=== PATIENT | female | born 1975 | race Caucasian/White ===

== ENCOUNTER 2018-05-29 11:30 | Emergency (ER) | payer OTHER ==
[2018-05-29 11:36] VITALS: BP 134/65
--- NOTE | 2018-05-29 11:45 | ER Document Report ---
HPI - HPI Patient complains to provider of: Dorsal left foot pain Onset: Yesterday - Evening Onset/Duration: Sudden Pain Level: 2 Context: 42-year-old female accidentally kicked a brick last evening and is having pain in the dorsal mid to distal foot into the second and third toes. She had some swelling this morning. Associated Symptoms: None Exacerbated by: Movement Relieved by: Denies - ROS ROS below otherwise negative: Yes Systems Reviewed and Negative: Yes All other systems reviewed and negative Past Medical History - General Information source: Patient - Social History Smoking Status: Unknown if Ever Smoked Frequency of alcohol use: None Drug Abuse: None Lives with: Spouse/Significant other Family History: Reviewed & Not Pertinent - Medical History Medical History: Negative Surgical Hx: Negative Vertical Provider Document - CONSTITUTIONAL Agree With Documented VS: Yes Exam Limitations: No Limitations General Appearance: No Apparent Distress - MUSCULOSKELETAL/EXTREMETIES Musculoskeletal/Extremeties: MAEW, FROM, Tender, Edema - Dorsal left mid to distal foot, neurovascular intact. 2+ DP. negative: Eccymosis - NEURO Level of Consciousness: Awake Motor/Sensory: No Motor Deficit, No Sensory Deficit - DERM Integumentary: No Rash Course - Re-evaluation Re-evalutation: 05/29/18 12:27 X-ray negative per radiologist - Vital Signs Vital signs: Temp Pulse Resp BP Pulse Ox 98.8 F 80 16 134/65 H 98 05/29/18 11:34 05/29/18 11:34 05/29/18 11:34 05/29/18 11:34 05/29/18 11:34 Procedures - Immobilization Left Foot Time completed: 12:35 Pre-Proc Neuro Vasc Exam: Normal Immobilizer type: Javy wrap Performed by: PCT Post-Proc Neuro Vasc Exam: Normal Alignment checked and good: Yes Discharge - Discharge Clinical Impression: Left foot contusion Condition: Good Disposition: HOME, SELF-CARE Instructions: Contusion ([facility]), Javy Wrap ([facility]), Ibuprofen (General) ([facility]) Additional Instructions: Javy bandage Elevate Motrin Follow-up with orthopedist if you continue to have problems with her left foot Prescriptions: Ibuprofen [Motrin 800 mg Tablet] 800 mg PO Q8HP PRN #30 tablet PRN Reason:
--- NOTE | 2018-05-29 12:10 | RADIOLOGY REPORT (SQ) ---
EXAM DESCRIPTION: FOOT LEFT COMPLETE COMPLETED DATE/TIME: 05/29/2018 11:58 am REASON FOR STUDY: Pain and swelling kicked COMPARISON: None. NUMBER OF VIEWS: Three views. TECHNIQUE: AP, lateral and oblique radiographic images acquired of the left foot. LIMITATIONS: None. FINDINGS: MINERALIZATION: Normal. BONES: No acute fracture or dislocation. No worrisome bone lesions. JOINTS: No effusions. SOFT TISSUES: No soft tissue swelling. No foreign body. OTHER: No other significant finding. IMPRESSION: NEGATIVE STUDY OF THE LEFT FOOT. NO RADIOGRAPHIC EVIDENCE OF ACUTE INJURY. TECHNICAL DOCUMENTATION: JOB ID: [id number] [employer]- All Rights Reserved Reading location - IP/workstation name: [email or web address]
== END 2018-05-29 12:34 | disposition home or self-care (01) ==
LOC: ER 11:30
DX: S90.32XA Contusion of left foot, initial encounter (principal); M79.672 Pain in left foot; M79.675 Pain in left toe(s); W22.8XXA Striking against or struck by other objects, initial encounter
CPT/HCPCS: 99283

== ENCOUNTER 2018-09-14 20:53 | Emergency (ER) | payer OTHER, MEDICAID ==
[2018-09-14 21:03] VITALS: BP 125/63
--- NOTE | 2018-09-14 21:39 | RADIOLOGY REPORT (SQ) ---
EXAM DESCRIPTION: XR FOOT 3 OR MORE VIEWS COMPLETED DATE/TME: 09/14/2018 00:00 CLINICAL HISTORY: 43 years ,Female pain in toe and foot unknown injury COMPARISON: None. TECHNIQUE: LEFT foot, Three view FINDINGS: No acute fractures or dislocations are identified. No osseous destructive lesions. No radiopaque foreign object noted. No significant ankle effusion noted. IMPRESSION: No acute fracture or dislocation is identified.
--- NOTE | 2018-09-14 22:19 | ER Document Report ---
ED Extremity Problem, Lower - General Chief Complaint: Foot Pain Stated Complaint: LEFT FOOT/TOE PAIN WHEN WIEGHT PUT ON IT Time Seen by Provider: 09/14/18 21:40 Mode of Arrival: Ambulatory Information source: Patient Notes: 43-year-old female presents to ED for complaint of pain to the bottom of her left foot including her toes. She states she does not know of any injuries to this foot. She states it is painful to walk on. Patient is alert and oriented respirations regular and unlabored speaking in full sentences she does walk with a limp. TRAVEL OUTSIDE OF THE [place] IN LAST 30 DAYS: No - HPI Patient complains to provider of: Pain. No: Injury Location: Foot Occurred: Other - Couple days Onset/Duration: Gradual Quality of pain: Burning, Sharp Severity: Mild Pain Level: 2 Recent injury: No Associated symptoms: Painful ambulation Exacerbated by: Movement, Walking Relieved by: Nothing - Related Data Allergies/Adverse Reactions: acetaminophen [From Percocet] Allergy (Verified 05/29/18 11:32) ciprofloxacin [From Cipro] Allergy (Verified 05/29/18 11:32) lorazepam Allergy (Verified 05/29/18 11:32) oxycodone [From Percocet] Allergy (Verified 05/29/18 11:32) Past Medical History - General Information source: Patient - Social History Smoking Status: Current Every Day Smoker Cigarette use (# per day): Yes - Half pack per day Chew tobacco use (# tins/day): No Smoking Education Provided: Yes - 4 minutes Frequency of alcohol use: None Drug Abuse: None Occupation: Housewife Lives with: Family Family History: Reviewed & Not Pertinent Patient has suicidal ideation: No Patient has homicidal ideation: No Pulmonary Medical History: Reports: Hx Asthma EENT Medical History: Reports: None Neurological Medical History: Reports: None Endocrine Medical History: Reports: Hx Hypothyroidism Renal/ Medical History: Reports: None Malignancy Medical History: Reports: Other - Thyroid cancer GI Medical History: Reports: None Musculoskeletal Medical History: Reports Hx Arthritis, Reports Hx Musculoskeletal Deformity, Reports Hx Musculoskeletal Trauma Skin Medical History: Reports Hx MRSA Psychiatric Medical History: Reports: None Traumatic Medical History: Reports: Hx Fractures - Hand wrist leg to her left scapula and fingers Infectious Medical History: Reports: Hx MRSA - Face Past Surgical History: Reports: Hx Cardiac Catheterization, Hx Thyroid Surgery - Thyroidectomy with injury to parathyroid, Hx Tubal Ligation, Other - Lymph nodes from left axilla, breast ducts removed, neck cyst. Denies: Hx Coronary Stent - Immunizations Immunizations up to date: Yes Review of Systems - Review of Systems Constitutional: No symptoms reported EENT: No symptoms reported Cardiovascular: No symptoms reported Respiratory: No symptoms reported Gastrointestinal: No symptoms reported Genitourinary: No symptoms reported Female Genitourinary: No symptoms reported Musculoskeletal: Other - Entire surface left foot and toes pain Skin: No symptoms reported Hematologic/Lymphatic: No symptoms reported Neurological/Psychological: No symptoms reported Physical Exam - Vital signs Vitals: Temp Pulse Resp BP Pulse Ox 98.9 F 89 16 125/63 97 09/14/18 21:02 09/14/18 21:02 09/14/18 21:02 09/14/18 21:02 09/14/18 21:02 Interpretation: Normal - General General appearance: Appears well, Alert - HEENT Head: Normocephalic, Atraumatic Eyes: Normal Pupils: PERRL - Respiratory Respiratory status: No respiratory distress Chest status: Nontender Breath sounds: Normal Chest palpation: Normal - Cardiovascular Rhythm: Regular Heart sounds: Normal auscultation Murmur: No - Abdominal Inspection: Normal Distension: No distension Bowel sounds: Normal Tenderness: Nontender Organomegaly: No organomegaly - Back Back: Normal, Nontender - Extremities General upper extremity: Normal inspection, Nontender, Normal color, Normal ROM , Normal temperature General lower extremity: Normal inspection, Normal color, Normal ROM, Normal temperature, Normal weight bearing. No: Reena's sign Foot: Tender - Bottom of left foot and toes, Metatarsal compress. pain, No evidence of FB. No: Abrasion, Deformity, Ecchymosis, Edema, Instability, Laceration, Nail injury, Navicular tenderness, Tender 5th metatarsal, Unable to bear weight - Neurological Neuro grossly intact: Yes Cognition: Normal Orientation: AAOx4 [place] Coma Scale Eye Opening: Spontaneous [place] Coma Scale Verbal: Oriented Wendy Coma Scale Motor: Obeys Commands [place] Coma Scale Total: 15 Speech: Normal Motor strength normal: LUE, RUE, LLE, RLE Sensory: Normal - Psychological Associated symptoms: Normal affect, Normal mood - Skin Skin Temperature: Warm Skin Moisture: Dry Skin Color: Normal Course - Vital Signs Vital signs: Temp Pulse Resp BP Pulse Ox 98.9 F 89 16 125/63 97 09/14/18 21:02 09/14/18 21:02 09/14/18 21:02 09/14/18 21:02 09/14/18 21:02 - Diagnostic Test Radiology reviewed: Image reviewed, Reports reviewed Discharge - Discharge Clinical Impression: Plantar fasciitis, left Condition: Stable Disposition: HOME, SELF-CARE Instructions: Plantar Fasciitis or Heel Spur ([facility]) Additional Instructions: Ibuprofen Ibuprofen is an excellent, safe drug for pain control. In addition, it has potent antiinflammatory effects which are beneficial, especially in the treatment of injuries, arthritis, or tendonitis. It's best to take ibuprofen with food. Persons with ulcer disease or allergy to aspirin should notify their physician of this before taking ibuprofen. Take the medication exactly as prescribed. Don't take additional doses unless instructed to do so by your doctor. If you develop wheezing, shortness of breath, hives, faintness, stomach pain, vomiting, or dark black stools, return for re-evaluation at once. Take a water bottle and up about 3 inches of the water out of the bottle. Screw the top back on the bottom. Laser bottle in the freezer until it freezes. Then roll your foot back and forth across the bottle with the RTU foot rolling across the bilateral to reduce the pain. There are arch support orthotic you can buy at the drugstore to put in your tender shoes for plantar fasciitis Exercises for the Foot Muscles Stretching and strengthening of the foot muscles is an important part of recovery from injury, as well as in treatment and prevention of overuse syndromes like plantar fasciitis. TOWEL CURLS: Put your foot on a dry towel. Curl your toes to pick it up, then drop it. As it becomes easier, use a heavier towel. Repeat 20 times, twice daily. KAYE CURLS: Lift and turn your knee, so your foot is against the opposite leg about mid-kaye. Try to "grab" the entire kaye bone with your toes, while moving your foot up and down the leg for one minute. Repeat twice daily. TOE LIFTS: Put your opposite foot over your 2nd to 5th toes. Now lift the toes up, pushing the other foot upward. Repeat 10 times, twice daily. Repeat using the large toe. EVERSIONS: Cross the opposite foot over, placing the heel just behind the 4th and 5th toes. Try to lift up the outside of the bottom foot. Hold 10 seconds. Repeat twice daily. FOLLOW-UP CARE: If you have been referred to a physician for follow-up care, call the physician s office for an appointment as you were instructed or within the next two days. If you experience worsening or a significant change in your symptoms, notify the physician immediately or return to the Emergency Department at any time for re-evaluation. Prescriptions: Ibuprofen 600 mg PO Q6HP PRN #20 tablet PRN Reason: Forms: Smoking Cessation Education Referrals: RG LEIJA DPM [ACTIVE STAFF] - Follow up as needed
== END 2018-09-14 22:35 | disposition home or self-care (01) ==
LOC: ER 20:53
DX: M72.2 Plantar fascial fibromatosis (principal); M79.672 Pain in left foot; M79.675 Pain in left toe(s); J45.909 Unspecified asthma, uncomplicated; F17.210 Nicotine dependence, cigarettes, uncomplicated; Z71.6 Tobacco abuse counseling; Z88.6 Allergy status to analgesic agent; Z88.1 Allergy status to other antibiotic agents; Z88.5 Allergy status to narcotic agent; Z88.8 Allergy status to other drugs, medicaments and biological substances
CPT/HCPCS: 99283; 99406

== ENCOUNTER 2018-10-22 13:01 | Emergency (ER) | payer OTHER, MEDICAID ==
--- NOTE | 2018-10-22 13:28 | ER Document Report ---
ED Medical Screen (RME) - General Chief Complaint: Ear Pain Stated Complaint: EAR PAIN Time Seen by Provider: 10/22/18 13:15 Notes: 43-year-old female patient reports sudden onset this morning of severe pain just behind the right ear. It is a pulsing type pain causing her to feel lightheaded. Palpating the bony area just behind the inferior ear region causes severe pain and she hears a sloshing sound. Pulling on the external ear canal seems to make it feel a little better. When she massages her parotid gland, it also causes that sloshing sound. I have greeted and performed a rapid initial assessment of this patient. A comprehensive ED assessment and evaluation of the patient, analysis of test results and completion of the medical decision making process will be conducted by additional ED providers. TRAVEL OUTSIDE OF THE [place] IN LAST 30 DAYS: No - Related Data Allergies/Adverse Reactions: ciprofloxacin [From Cipro] Allergy (Verified 10/22/18 13:04) lorazepam Allergy (Verified 10/22/18 13:04) oxycodone [From Percocet] Allergy (Verified 10/22/18 13:04) Past Medical History - Social History Chew tobacco use (# tins/day): No Frequency of alcohol use: Occasional Drug Abuse: None Pulmonary Medical History: Reports: Hx Asthma Endocrine Medical History: Reports: Hx Hypothyroidism Renal/ Medical History: Denies: Hx Peritoneal Dialysis Musculoskeltal Medical History: Reports Hx Arthritis, Reports Hx Musculoskeletal Deformity, Reports Hx Musculoskeletal Trauma Skin Medical History: Reports Hx MRSA Traumatic Medical History: Reports: Hx Fractures - Hand wrist leg to her left scapula and fingers Infectious Medical History: Reports: Hx MRSA - Face Past Surgical History: Reports: Hx Cardiac Catheterization, Hx Thyroid Surgery - Thyroidectomy with injury to parathyroid, Hx Tubal Ligation, Other - Lymph nodes from left axilla, breast ducts removed, neck cyst. Denies: Hx Coronary Stent - Immunizations Immunizations up to date: Yes Physical Exam - Vital signs Vitals: Temp Pulse Resp BP Pulse Ox 98.1 F 81 16 146/84 H 96 10/22/18 13:04 10/22/18 13:04 10/22/18 13:04 10/22/18 13:04 10/22/18 13:04 Course - Vital Signs Vital signs: Temp Pulse Resp BP Pulse Ox 98.1 F 81 16 146/84 H 96 10/22/18 13:04 10/22/18 13:04 10/22/18 13:04 10/22/18 13:04 10/22/18 13:04
[2018-10-22 14:16] LABS: ABSOLUTE EOSINOPHILS # (AUTO) 0.1 10^3/uL (0.0-0.6); ABSOLUTE MONOCYTES (AUTO) 0.4 10^3/uL (0.1-1.4); ABSOLUTE NEUT (AUTO) 3.5 10^3/uL (1.7-8.2); BASOPHILS % (AUTO) 0.3 % (0-2); EOSINOPHILS % (AUTO) 1.1 % (0-6); HEMATOCRIT 42.1 % (36.0-47.0); HEMOGLOBIN 14.6 g/dL (12.0-15.5); LYMPHOCYTES % (AUTO) 43.2 % (13-45); MEAN CORPUSCULAR HEMOGLOBIN 31.3 pg (27.0-33.4); MEAN CORPUSCULAR HGB CONC 34.7 g/dL (32.0-36.0); MEAN CORPUSCULAR VOLUME 90 fl (80-97); MONOCYTES % (AUTO) 5.2 % (3-13); PLATELET COUNT 237 10^3/uL (150-450); RED BLOOD COUNT 4.66 10^6/uL (3.72-5.28); SEGMENTED NEUTROPHILS % (AUTO) 50.2 % (42-78); TOTAL CELLS COUNTED % (AUTO) 100 %
[2018-10-22 14:32] LABS: ALANINE AMINOTRANSFERASE 23 U/L (9-52); ALBUMIN 4.3 g/dL (3.5-5.0); ALKALINE PHOSPHATASE 44 U/L (38-126); ANION GAP 10 (5-19); ASPARTATE AMINO TRANSFERASE 19 U/L (14-36); BILIRUBIN,DIRECT 0.2 mg/dL (0.0-0.4); BILIRUBIN,TOTAL 0.4 mg/dL (0.2-1.3); BLOOD UREA NITROGEN 7 mg/dL (7-20); CALCIUM 9.4 mg/dL (8.4-10.2); CARBON DIOXIDE 25 mmol/L (22-30); CHLORIDE 106 mmol/L (98-107); GLUCOSE 90 mg/dL (75-110); POTASSIUM 4.4 mmol/L (3.6-5.0); SODIUM 141.1 mmol/L (137-145); TOTAL PROTEIN 7.5 g/dL (6.3-8.2)
[2018-10-22 14:34] LABS: C-REACTIVE PROTEIN < 5.0 mg/L (<10.0)
[2018-10-22] MEDS ORDERED: PSEUDOEPHEDRINE HCL 30 MG TABLET PO ONE (14:57)
[2018-10-22] MEDS ORDERED: OXYMETAZOLINE HCL 0.05% NASAL SPRAY 15 ML BOTTLE NASL ONE (14:57)
[2018-10-22] MEDS ORDERED: MECLIZINE HCL 25 MG TABLET PO ONE (14:57)
--- NOTE | 2018-10-22 15:50 | ER Document Report ---
ED ENT - General Chief Complaint: Ear Pain Stated Complaint: EAR PAIN Time Seen by Provider: 10/22/18 13:15 Notes: This is a 43-year-old pleasant female to the emergency department complaining of right ear pain. Patient went to her primary care provider's office. Was seen and sent here to the ER for a CT scan of the head because she was having right ear pain. They were concerned she might have mastoiditis. Patient states that the pain came on suddenly and felt like her hearing was diminished. She can hear the heartbeat. It is throbbing. Denies any pain behind the ear. No fever, chills, sweats, chest pain or other issues at this time. No trauma to the ear. Patient states that she was recently treated with doxycycline for sinus infection. Last dose was yesterday. TRAVEL OUTSIDE OF THE [place] IN LAST 30 DAYS: No - HPI Patient complains to provider of: Ear problem Onset: Just prior to arrival Quality of pain: Achy Severity: Moderate Pain Level: 3 Location of pain: Ears - Related Data Allergies/Adverse Reactions: ciprofloxacin [From Cipro] Allergy (Verified 10/22/18 13:04) lorazepam Allergy (Verified 10/22/18 13:04) oxycodone [From Percocet] Allergy (Verified 10/22/18 13:04) Past Medical History - General Information source: Patient - Social History Smoking Status: Current Every Day Smoker Chew tobacco use (# tins/day): No Frequency of alcohol use: Occasional Drug Abuse: None Lives with: Spouse/Significant other Family History: Reviewed & Not Pertinent Patient has suicidal ideation: No Patient has homicidal ideation: No Pulmonary Medical History: Reports: Hx Asthma Endocrine Medical History: Reports: Hx Hypothyroidism Renal/ Medical History: Denies: Hx Peritoneal Dialysis Musculoskeletal Medical History: Reports Hx Arthritis, Reports Hx Musculoskeletal Deformity, Reports Hx Musculoskeletal Trauma Skin Medical History: Reports Hx MRSA Traumatic Medical History: Reports: Hx Fractures - Hand wrist leg to her left scapula and fingers Infectious Medical History: Reports: Hx MRSA - Face Past Surgical History: Reports: Hx Cardiac Catheterization, Hx Thyroid Surgery - Thyroidectomy with injury to parathyroid, Hx Tubal Ligation, Other - Lymph nodes from left axilla, breast ducts removed, neck cyst. Denies: Hx Coronary Stent - Immunizations Immunizations up to date: Yes Review of Systems - Review of Systems Notes: Constitutional: denies: Chills, Diaphoresis, Fever, Malaise, Weakness EENT: denies: Eye discharge, Blurred vision, Tearing, Double vision, Nose congestion, Nose discharge, Throat swelling, Mouth pain. Patient does state that she has right ear pain and fullness in the right ear with a recent sinus infection Cardiovascular: denies: Palpitations, Heart racing, Orthopnea, Dyspnea, Chest pain Respiratory: denies: Cough, Hurts to breathe, Wheezing, Shortness of breath Gastrointestinal: denies: Abdominal pain, Diarrhea, Nausea, Vomiting, Black stools, bright red blood in stool Genitourinary: denies: Burning, Dysuria, Discharge, Frequency, Flank pain, Hematuria Musculoskeletal: denies: Joint pain, Joint swelling, Muscle pain, Muscle stiffness, back pain Hematologic/Lymphatic: denies: Anemia, Easy bleeding, Easy bruising, Blood clots Neurological/Psychological: denies: Confusion, Dementia, Depression, Loss of consciousness Skin: No lesions, no masses, no skin breakdown, no abscesses Physical Exam - Vital signs Vitals: Temp Pulse Resp BP Pulse Ox 98.1 F 81 16 146/84 H 96 10/22/18 13:04 10/22/18 13:04 10/22/18 13:04 10/22/18 13:04 10/22/18 13:04 Interpretation: Normal - General General appearance: Appears well, Alert - HEENT Head: Normocephalic, Atraumatic Eyes: Normal Pupils: PERRL - Respiratory Respiratory status: No respiratory distress Chest status: Nontender Breath sounds: Normal Chest palpation: Normal - Cardiovascular Rhythm: Regular Heart sounds: Normal auscultation Murmur: No - Abdominal Inspection: Normal Distension: No distension Bowel sounds: Normal Tenderness: Nontender Organomegaly: No organomegaly - Back Back: Normal, Nontender - Extremities General upper extremity: Normal inspection, Nontender, Normal color, Normal ROM , Normal temperature General lower extremity: Normal inspection, Nontender, Normal color, Normal ROM , Normal temperature, Normal weight bearing. No: Reena's sign - Neurological Neuro grossly intact: Yes Cognition: Normal Orientation: AAOx4 [place] Coma Scale Eye Opening: Spontaneous Wendy Coma Scale Verbal: Oriented [place] Coma Scale Motor: Obeys Commands [place] Coma Scale Total: 15 Speech: Normal Motor strength normal: LUE, RUE, LLE, RLE Sensory: Normal - Psychological Associated symptoms: Normal affect, Normal mood - Skin Skin Temperature: Warm Skin Moisture: Dry Skin Color: Normal Course - Re-evaluation Re-evalutation: 10/22/18 15:59 Laboratory 10/22/18 10/22/18 13:59 13:59 WBC 7.0 RBC 4.66 Hgb 14.6 Hct 42.1 MCV 90 MCH 31.3 MCHC 34.7 RDW 13.0 Plt Count 237 Seg Neutrophils % 50.2 Lymphocytes % 43.2 Monocytes % 5.2 Eosinophils % 1.1 Basophils % 0.3 Absolute Neutrophils 3.5 Absolute Lymphocytes 3.0 Absolute Monocytes 0.4 Absolute Eosinophils 0.1 Absolute Basophils 0.0 Sodium 141.1 Potassium 4.4 Chloride 106 Carbon Dioxide 25 Anion Gap 10 BUN 7 Creatinine 0.61 Est GFR ( Amer) > 60 Est GFR (Non-Af Amer) > 60 Glucose 90 Calcium 9.4 Total Bilirubin 0.4 Direct Bilirubin 0.2 Neonat Total Bilirubin Not Reportable Neonat Direct Bilirubin Not Reportable Neonat Indirect Bili Not Reportable AST 19 ALT 23 Alkaline Phosphatase 44 C-Reactive Protein < 5.0 Total Protein 7.5 Albumin 4.3 At this time patient's labs are normal, her vital signs are normal. She does not have any redness or abnormality noted to the tympanic membrane. Seems to be getting better after treatment with Sudafed and Afrin as well as some manipulation to the eustachian tube through a downward pressure on the tragus and massaging of the mandible from the TMJ towards the chin. This seems to help her symptoms. At this time I think a CAT scan would be a little overkill. I am not saying that she could not potentially be developing mastoiditis however based on my exam and the fact that patient does not really want a CAT scan and the radiation exposure I think doing symptomatic management at this time would be more appropriate. Patient was advised to return for any worsening symptoms. No suitable discharge instructions were found so I did put a discharge instruction in for barotrauma however she has no significant trauma to the ear but these were the closest discharge instructions that I could find. - Vital Signs Vital signs: Temp Pulse Resp BP Pulse Ox 98.1 F 81 16 146/84 H 96 10/22/18 13:04 10/22/18 13:04 10/22/18 13:04 10/22/18 13:04 10/22/18 13:04 - Laboratory Result Diagrams: 10/22/18 13:59 10/22/18 13:59 Discharge - Discharge Clinical Impression: Otalgia of right ear Eustachian tube disorder Qualifiers: Laterality: right Qualified Code(s): H69.91 - Unspecified Eustachian tube disorder, right ear Condition: Good Disposition: HOME, SELF-CARE Instructions: Ear Barotrauma ([facility]) Additional Instructions: You have right ear pain. Unknown cause at this time. It does not appear to be an infection. You do not have significant symptoms consistent with mastoiditis which would be an infection in the bone. We have decided against doing a CAT scan today. We will try conservative measures at this time. In the event that symptoms are getting worse it will be important that you return for repeat evaluation and further advanced imaging may be required. I am recommending that you take Sudafed every 12 hours, Afrin nasal spray every 12 hours and ibuprofen 600 or 800 mg every 8 hours. Continue to do the exercises which I described. In the event of any worsening symptoms please return immediately for repeat evaluation and treatment. Prescriptions: Meclizine HCl [Antivert 25 mg Tablet] 25 mg PO BID 10 Days #20 tablet Pseudoephedrine HCl [Sudafed] 30 mg PO Q12 10 Days #20 tablet Forms: Return to Work Referrals: BLANCHE RUTH DO [ASSOCIATE] - Follow up in 3-5 days
[2018-10-22 16:09] VITALS: BP 141/74
== END 2018-10-22 16:09 | disposition home or self-care (01) ==
LOC: ER 13:01
DX: H69.91 Unspecified Eustachian tube disorder, right ear (principal); H92.01 Otalgia, right ear; F17.200 Nicotine dependence, unspecified, uncomplicated; J45.909 Unspecified asthma, uncomplicated
CPT/HCPCS: 99283; 36415; 85025; 86140; 80053; J3490

== ENCOUNTER → 2018-11-02 | Outpatient (CLI) | payer OTHER, MEDICAID ==
--- NOTE | 2018-11-02 14:13 | RADIOLOGY REPORT (SQ) ---
EXAM DESCRIPTION: FOOT LEFT COMPLETE COMPLETED DATE/TIME: 11/02/2018 1:10 pm REASON FOR STUDY: POSSIBLE FX OF LEFT FOOT COMPARISON: None. NUMBER OF VIEWS: Three views left foot. LIMITATIONS: None. FINDINGS: Abnormal bone density. On oblique view only, a 3rd mid metatarsal transverse lucency. Garrett spected to be artifact, no evidence of this finding on the other images and no periosteal new bone fo rmation. Other bones are intact. OTHER: No other significant finding. IMPRESSION: 1. Mild 3rd metatarsal shaft lucency is potentially simply artifact. Does the patient have specific tenderness here? If so, nondisplaced fracture is in the differential. TECHNICAL DOCUMENTATION: JOB ID: [id number] Reading location - IP/workstation name: [email or web address]
== END ==
LOC: OD 12:56
PROVIDERS: ATTEND Podiatrist Foot & Ankle Surgery
DX: M84.375D Stress fracture, left foot, subsequent encounter for fracture with routine healing (principal); X58.XXXD Exposure to other specified factors, subsequent encounter

== ENCOUNTER 2019-01-13 17:20 | Emergency (ER) | payer OTHER, MEDICAID ==
[2019-01-13 17:31] VITALS: BP 137/81
[2019-01-13] MEDS ORDERED: IBUPROFEN 800 MG TABLET PO ONE (17:47)
--- NOTE | 2019-01-13 18:23 | RADIOLOGY REPORT (SQ) ---
EXAM DESCRIPTION: HAND LEFT 3 VIEWS COMPLETED DATE/TIME: 01/13/2019 6:15 pm REASON FOR STUDY: smashed hand in door COMPARISON: None. EXAM PARAMETERS: NUMBER OF VIEWS: Three views. TECHNIQUE: AP, lateral and oblique radiographic images acquired of the left hand. LIMITATIONS: None. FINDINGS: MINERALIZATION: Normal. BONES: No acute fracture or dislocation. No worrisome bone lesions. JOINTS: No effusions. SOFT TISSUES: No soft tissue swelling. No foreign body. OTHER: No other significant finding. IMPRESSION: NEGATIVE STUDY OF THE LEFT HAND. NO RADIOGRAPHIC EVIDENCE OF ACUTE INJURY. TECHNICAL DOCUMENTATION: JOB ID: [id number] [employer]- All Rights Reserved Reading location - IP/workstation name: [email or web address]
--- NOTE | 2019-01-13 18:33 | ER Document Report ---
HPI - HPI Patient complains to provider of: right hand pain Time Seen by Provider: 01/13/19 17:44 Onset: Just prior to arrival Onset/Duration: Sudden Quality of pain: Achy Severity: Severe Pain Level: 4 Context: Patient presents emergency department with complaints of right hand pain. Patient reports she was carrying a tote of groceries in and slammed her hand in the door. She reports dorsal hand pain. No obvious deformity. No other com plaints. Patient is right-hand dominant. Associated Symptoms: None Exacerbated by: Movement Relieved by: Denies Similar symptoms previously: No Recently seen / treated by doctor: No - REPRODUCTIVE Reproductive: DENIES: : Past Medical History - General Information source: Patient - Social History Smoking Status: Current Every Day Smoker Chew tobacco use (# tins/day): No Frequency of alcohol use: None Drug Abuse: None Lives with: Family Family History: Reviewed & Not Pertinent Patient has suicidal ideation: No Patient has homicidal ideation: No Pulmonary Medical History: Reports: Hx Asthma Endocrine Medical History: Reports: Hx Hypothyroidism Renal/ Medical History: Denies: Hx Peritoneal Dialysis Malignancy Medical History: Reports: Other - Thyroid cancer Musculoskeletal Medical History: Reports Hx Arthritis, Reports Hx Musculoskeletal Deformity, Reports Hx Musculoskeletal Trauma Skin Medical History: Reports Hx MRSA Traumatic Medical History: Reports: Hx Fractures - Hand wrist leg to her left scapula and fingers Infectious Medical History: Reports: Hx MRSA - Face Past Surgical History: Reports: Hx Cardiac Catheterization, Hx Thyroid Surgery - Thyroidectomy with injury to parathyroid, Hx Tubal Ligation, Other - Lymph nodes from left axilla, breast ducts removed, neck cyst. Denies: Hx Coronary Stent - Immunizations Immunizations up to date: Yes Vertical Provider Document - CONSTITUTIONAL Agree With Documented VS: Yes Exam Limitations: No Limitations General Appearance: WD/WN, Mild Distress - wincing with touch to hand - INFECTION CONTROL TRAVEL OUTSIDE OF THE [place] IN LAST 30 DAYS: No - HEENT HEENT: Atraumatic, Normocephalic - NECK Neck: Supple - RESPIRATORY Respiratory: No Respiratory Distress - CARDIOVASCULAR Cardiovascular: Regular Rate - MUSCULOSKELETAL/EXTREMETIES Musculoskeletal/Extremeties: MAEW, FROM, Tender - right dorsal hand ttp, no obvious deformity, no erythema, no warmth, good cap refill, good radial pulse - NEURO Level of Consciousness: Awake, Alert, Appropriate Motor/Sensory: No Motor Deficit - DERM Integumentary: Warm, Dry Adult Front & Back Diagram: 1 - ttp Course - Re-evaluation Re-evalutation: 01/13/19 18:40 negative hand x-ray no fracture noted. Patient instructed on xray, ice packs Motrin for pain Javy wrap for comfort. She verbalized understanding all instruction. She was also instructed to follow-up with orthopedic for recheck within 1 week or for continued pain. Dictation of this chart was performed using voice recognition software; therefore, there may be some unintended grammatical errors. - Vital Signs Vital signs: Temp Pulse Resp BP Pulse Ox 98.6 F 95 17 137/81 H 100 01/13/19 17:30 01/13/19 17:30 01/13/19 17:30 01/13/19 17:30 01/13/19 17:30 - Diagnostic Test Radiology reviewed: Image reviewed, Reports reviewed - EXAM DESCRIPTION: HAND LEFT 3 VIEWS COMPLETED DATE/TIME: 01/13/2019 6:15 pm REASON FOR STUDY: smashed hand in door COMPARISON: None. EXAM PARAMETERS: NUMBER OF VIEWS: Three views. TECHNIQUE: AP, lateral and oblique radiographic images acquired of the left hand. LIMITATIONS: None. FINDINGS: MINERALIZATION: Normal. BONES: No acute fracture or dislocation. No worrisome bone lesions. JOINTS: No effusions. SOFT TISSUES: No soft tissue swelling. No foreign body. OTHER: No other significant finding. IMPRESSION: NEGATIVE STUDY OF THE LEFT HAND. NO RADIOGRAPHIC EVIDENCE OF ACUTE INJURY. Procedures - Immobilization Right Hand Time completed: 18:42 Pre-Proc Neuro Vasc Exam: Normal Immobilizer type: Javy wrap Performed by: LAZARO - jeanie Post-Proc Neuro Vasc Exam: Unchanged from pre-exam Alignment checked and good: Yes Discharge - Discharge Clinical Impression: Injury of left hand Qualifiers: Encounter type: initial encounter Qualified Code(s): S69.92XA - Unspecified injury of left wrist, hand and finger(s), initial encounter Condition: Stable Disposition: HOME, SELF-CARE Instructions: Javy Wrap ([facility]), Use of [id number]-Zuv-[id number] Ibuprofen ([facility]), Ice & Elevation ([facility]) Additional Instructions: *You have been evaluated for left hand injury *Maintain the javy wrap for comfort *Rest/Ice/Elevate *Follow up with orthopedics for continued pain-call for an appointment *Take ibuprofen as indicated for pain *Return to ED for worsening condition, changes, needs Forms: Return to Work Referrals: ALLEN KNOX MD [Primary Care Provider] - Follow up in 1 week
== END 2019-01-13 18:44 | disposition home or self-care (01) ==
LOC: ER 17:20
DX: S69.92XA Unspecified injury of left wrist, hand and finger(s), initial encounter (principal); M79.641 Pain in right hand; W23.0XXA Caught, crushed, jammed, or pinched between moving objects, initial encounter; Y93.89 Activity, other specified; F17.200 Nicotine dependence, unspecified, uncomplicated; J45.909 Unspecified asthma, uncomplicated; Z85.850 Personal history of malignant neoplasm of thyroid; Z87.81 Personal history of (healed) traumatic fracture
CPT/HCPCS: 99283

== ENCOUNTER 2019-01-27 13:06 | Emergency (ER) | payer OTHER, MEDICAID ==
[2019-01-27] MEDS ORDERED: ASPIRIN 81 MG TABLET, CHEWABLE PO ONE (13:32)
[2019-01-27] MEDS ORDERED: IPRATROPIUM/ALBUTEROL 0.5-2.5 MG/3 ML AMPUL NEB ONE (13:33)
--- NOTE | 2019-01-27 13:34 | ER Document Report ---
ED Medical Screen (RME) - General Chief Complaint: Chest Pain Stated Complaint: CHEST PAIN, SHORT OF BREATH Time Seen by Provider: 01/27/19 13:32 Primary Care Provider: ALLEN KNOX MD [Primary Care Provider] - Follow up as needed Notes: Chief complaint: Chest pain History of complain:( obtained from----patient) 43 years old female with a history of MT-hyperparathyroidism, presents today with chest pain over the left chest wall coughing and wheezing. She is also smoking. Took her inhaler without improvement came to the ED. Denies any left arm numbness tingling sensation nausea vomiting palpitation or diaphoresis. PHYSICAL EXAMINATION: GENERAL: Well-appearing, well-nourished and in mild to moderate acute distress. HEAD: Atraumatic, normocephalic. EYES: Pupils equal round and reactive to light, extraocular movements intact, conjunctiva are normal. ENT: Nares patent, oropharynx clear without exudates. Moist mucous membranes. NECK: Normal range of motion, supple without lymphadenopathy LUNGS: Breath sounds clear to auscultation bilaterally and equal. No wheezes rales or rhonchi. Chest wall tenderness noted over the left precordium HEART: Regular rate and rhythm without murmurs Dictation was performed using [employer] voice recognition software TRAVEL OUTSIDE OF THE [place] IN LAST 30 DAYS: No - Related Data Allergies/Adverse Reactions: ciprofloxacin [From Cipro] Allergy (Verified 01/27/19 13:09) lorazepam Allergy (Verified 01/27/19 13:09) oxycodone [From Percocet] Allergy (Verified 01/27/19 13:09) Past Medical History Pulmonary Medical History: Reports: Hx Asthma Endocrine Medical History: Reports: Hx Hypothyroidism Renal/ Medical History: Denies: Hx Peritoneal Dialysis Musculoskeltal Medical History: Reports Hx Arthritis, Reports Hx Musculoskeletal Deformity, Reports Hx Musculoskeletal Trauma Skin Medical History: Reports Hx MRSA Traumatic Medical History: Reports: Hx Fractures - Hand wrist leg to her left scapula and fingers Infectious Medical History: Reports: Hx MRSA - Face Past Surgical History: Reports: Hx Cardiac Catheterization, Hx Thyroid Surgery - Thyroidectomy with injury to parathyroid, Hx Tubal Ligation, Other - Lymph nodes from left axilla, breast ducts removed, neck cyst. Denies: Hx Coronary Stent - Immunizations Immunizations up to date: Yes Physical Exam - Vital signs Vitals: Temp Pulse Resp BP Pulse Ox 98.2 F 113 H 18 119/81 100 01/27/19 13:11 01/27/19 13:11 01/27/19 13:11 01/27/19 13:11 01/27/19 13:11 Course - Vital Signs Vital signs: Temp Pulse Resp BP Pulse Ox 98.2 F 113 H 18 119/81 100 01/27/19 13:11 01/27/19 13:11 01/27/19 13:11 01/27/19 13:11 01/27/19 13:11 Doctor's Discharge - Discharge Referrals: ALLEN KNOX MD [Primary Care Provider] - Follow up as needed
[2019-01-27 14:03] LABS: ABSOLUTE BASOPHILS # (AUTO) 0.1 10^3/uL (0.0-0.2); ABSOLUTE EOSINOPHILS # (AUTO) 0.1 10^3/uL (0.0-0.6); ABSOLUTE MONOCYTES (AUTO) 0.4 10^3/uL (0.1-1.4); ABSOLUTE NEUT (AUTO) 3.5 10^3/uL (1.7-8.2); BASOPHILS % (AUTO) 0.7 % (0-2); EOSINOPHILS % (AUTO) 1.4 % (0-6); HEMATOCRIT 42.6 % (36.0-47.0); HEMOGLOBIN 14.9 g/dL (12.0-15.5); LYMPHOCYTES % (AUTO) 42.7 % (13-45); MEAN CORPUSCULAR HEMOGLOBIN 31.5 pg (27.0-33.4); MEAN CORPUSCULAR VOLUME 90 fl (80-97); MONOCYTES % (AUTO) 6.2 % (3-13); PLATELET COUNT 189 10^3/uL (150-450); RED BLOOD COUNT 4.72 10^6/uL (3.72-5.28); RED CELL DISTRIBUTION WIDTH 13.3 % (11.5-14.0); TOTAL CELLS COUNTED % (AUTO) 100 %; WHITE BLOOD COUNT 7.1 10^3/uL (4.0-10.5)
[2019-01-27 14:20] LABS: ALANINE AMINOTRANSFERASE 25 U/L (9-52); ALBUMIN 4.3 g/dL (3.5-5.0); ALKALINE PHOSPHATASE 50 U/L (38-126); ANION GAP 9 (5-19); ASPARTATE AMINO TRANSFERASE 17 U/L (14-36); BILIRUBIN,DIRECT 0.1 mg/dL (0.0-0.4); BILIRUBIN,TOTAL 0.4 mg/dL (0.2-1.3); BLOOD UREA NITROGEN 9 mg/dL (7-20); CALCIUM 9.7 mg/dL (8.4-10.2); CARBON DIOXIDE 26 mmol/L (22-30); CHLORIDE 105 mmol/L (98-107); CREATINE KINASE 27 U/L (30-135); GLUCOSE 117 mg/dL (75-110); POTASSIUM 4.3 mmol/L (3.6-5.0); TOTAL PROTEIN 6.9 g/dL (6.3-8.2)
[2019-01-27 14:30] LABS: CREATINE KINASE MB < 0.22 ng/mL (<4.55)
--- NOTE | 2019-01-27 14:48 | RADIOLOGY REPORT (SQ) ---
EXAM DESCRIPTION: CHEST SINGLE VIEW COMPLETED DATE/TIME: 01/27/2019 2:36 pm REASON FOR STUDY: Chest pain COMPARISON: None. EXAM PARAMETERS: NUMBER OF VIEWS: One view. TECHNIQUE: Single frontal radiographic view of the chest acquired. RADIATION DOSE: NA LIMITATIONS: None. FINDINGS: LUNGS AND PLEURA: No opacities, masses or pneumothorax. No pleural effusion. MEDIASTINUM AND HILAR STRUCTURES: No masses. Contour normal. HEART AND VASCULAR STRUCTURES: Heart normal in size. Normal vasculature. BONES: No acute findings. HARDWARE: None in the chest. OTHER: No other significant finding. IMPRESSION: NO ACUTE RADIOGRAPHIC FINDING IN THE CHEST. TECHNICAL DOCUMENTATION: JOB ID: [id number] [employer]- All Rights Reserved Reading location - IP/workstation name: [email or web address]
[2019-01-27 15:15] LABS: TROPONIN I < 0.012 ng/mL
--- NOTE | 2019-01-27 15:52 | ER Document Report ---
Doctor's Note Notes: 01/27/19 15:50 I signed up to evaluate this patient. She had been back in her room for some time, triage labs and aspirin have been ordered. She had EKG performed. I did review lab work, imaging, EKG. Lab work was unremarkable. Chest x-ray failed to show any acute cardiopulmonary disease. EKG revealed a sinus tachycardia with a rate of 103 bpm. Normal axis and intervals, no acute ST changes concerning for ischemia or infarction. I went into an interview and evaluate the patient. She we come adamant that she was going to leave AGAINST MEDICAL ADVICE. She was extremely frustrated at her weight time. I did try to discuss this with the patient. I explained to her her risk of sudden cardiac and other potential comorbidities.. She became even more frustrated. I explained her that if anytime she changed her mind she was certainly welcome to return to the emergency department. She proceeded to sign AMA papers and left the department AGAINST MEDICAL ADVICE. She refused to stay for second troponin draw.
[2019-01-27 15:55] VITALS: BP 118/79
--- NOTE | 2019-01-27 22:08 | EKG REPORT ---
SEVERITY:- BORDERLINE ECG - SINUS TACHYCARDIA PROBABLE LEFT ATRIAL ABNORMALITY LVH : Confirmed by: Brooke Valadez 27-Jan-2019 22:07:42
== END 2019-01-27 15:58 | disposition left against medical advice (07) ==
LOC: ER 13:06
DX: R07.9 Chest pain, unspecified (principal); R06.2 Wheezing; F17.200 Nicotine dependence, unspecified, uncomplicated; I25.2 Old myocardial infarction; Z88.3 Allergy status to other anti-infective agents; Z88.6 Allergy status to analgesic agent; Z86.14 Personal history of Methicillin resistant Staphylococcus aureus infection; Z98.51 Tubal ligation status
CPT/HCPCS: 93005; 94640; 99285; 36415; 82553; 82550; 85025; 80053; 84484; 71045; 93010; J7620

== ENCOUNTER 2019-01-28 11:19 | Emergency (ER) | payer OTHER, MEDICAID ==
[2019-01-28] MEDS ORDERED: ASPIRIN 81 MG TABLET, CHEWABLE PO ONE (13:14)
[2019-01-28 13:36] VITALS: BP 122/69
--- NOTE | 2019-01-28 14:25 | ER Document Report ---
ED General - General Chief Complaint: Palpitations Stated Complaint: CHEST PAIN Time Seen by Provider: 01/28/19 12:24 Primary Care Provider: ALLEN KNOX MD [Primary Care Provider] - Follow up as needed Notes: 43 female who left AMA yesterday for the same complaint today who is sitting comfortably in the bed in no acute distress and not tachypneic presents for request for TSH and free T4 check. She states that she has constant chest pain and short of breath. She denies fevers, complains of lightheadedness while walking, complains of chest pain that is constant and worse with exertion, complains of her right arm "not getting blood ", complains of sweats, complains of nausea, denies vomiting or abdominal pain, denies any urinary symptoms. No other complaints TRAVEL OUTSIDE OF THE [place] IN LAST 30 DAYS: No - Related Data Allergies/Adverse Reactions: ciprofloxacin [From Cipro] Allergy (Verified 01/27/19 13:09) lorazepam Allergy (Verified 01/27/19 13:09) oxycodone [From Percocet] Allergy (Verified 01/27/19 13:09) Past Medical History - Social History Smoking Status: Never Smoker Frequency of alcohol use: None Drug Abuse: None Family History: Reviewed & Not Pertinent Patient has suicidal ideation: No Patient has homicidal ideation: No - Past Medical History Cardiac Medical History: Reports: Hx Heart Attack - 2001 Pulmonary Medical History: Reports: Hx Asthma Endocrine Medical History: Reports: Hx Hypothyroidism Renal/ Medical History: Denies: Hx Peritoneal Dialysis Musculoskeletal Medical History: Reports Hx Arthritis, Reports Hx Musculoskeletal Deformity, Reports Hx Musculoskeletal Trauma Skin Medical History: Reports Hx MRSA Traumatic Medical History: Reports: Hx Fractures - Hand wrist leg to her left scapula and fingers Infectious Medical History: Reports: Hx MRSA - Face Past Surgical History: Reports: Hx Cardiac Catheterization - no stent, Hx Thyroid Surgery - Thyroidectomy with injury to parathyroid, Hx Tubal Ligation, Other - Lymph nodes from left axilla, breast ducts removed, neck cyst. Denies: Hx Coronary Stent - Immunizations Immunizations up to date: Yes Review of Systems - Review of Systems Constitutional: See HPI EENT: No symptoms reported Cardiovascular: See HPI Respiratory: See HPI Gastrointestinal: See HPI Genitourinary: See HPI Female Genitourinary: No symptoms reported Musculoskeletal: No symptoms reported Skin: No symptoms reported Hematologic/Lymphatic: No symptoms reported Neurological/Psychological: No symptoms reported Physical Exam - Vital signs Vitals: Temp Pulse Resp BP Pulse Ox 98.8 F 83 24 H 119/67 99 01/28/19 11:37 01/28/19 11:37 01/28/19 11:37 01/28/19 11:37 01/28/19 11:37 - Notes Notes: PHYSICAL EXAMINATION: Reviewed vital signs and charting by RN GENERAL: Alert. No acute distress. HEAD: Normocephalic, atraumatic. EYES: Pupils equal, round. Extraocular movements intact. NECK: Full range of motion. Supple. Trachea midline. LUNGS: Clear to auscultation bilaterally, no wheezes, rales, or rhonchi. No respiratory distress. HEART: Regular rate and rhythm. No murmur ABDOMEN: soft, non-tender. Non-distended. Bowel sounds present in all 4 quadrants. no McBurney's point tenderness, no [place] sign. EXTREMITIES: Moves all 4 extremities spontaneously. No edema, No cyanosis. NEUROLOGICAL: Oriented. Normal speech. SKIN: Warm, dry, normal turgor. No rashes or lesions noted. Course - Re-evaluation Re-evalutation: 01/28/19 14:22 Patient states she received a call from follow-up nurse because she left AMA yesterday and was instructed to come in for a "quick visit ". Patient stated she wanted her TSH and free T4 checked. Patient's complaints were chest pain and shortness of breath. I did initiate a chest pain care set but patient left prior to getting chest x-ray or results from any labs. This happened yesterday as well. Yesterday patient had a negative initial troponin. Patient left AGAINST MEDICAL ADVICE - Vital Signs Vital signs: Temp Pulse Resp BP Pulse Ox 98.8 F 83 20 122/69 100 01/28/19 11:37 01/28/19 11:37 01/28/19 13:01 01/28/19 13:00 01/28/19 13:01 Discharge - Discharge Clinical Impression: Well adult exam Condition: Good Disposition: AGAINST MEDICAL ADVICE Referrals: ALLEN KNOX MD [Primary Care Provider] - Follow up as needed
[2019-01-28 16:59] LABS: ABSOLUTE EOSINOPHILS # (AUTO) 0.1 10^3/uL (0.0-0.6); ABSOLUTE LYMPHOCYTES (AUTO) 3.6 10^3/uL (0.5-4.7); ABSOLUTE MONOCYTES (AUTO) 0.5 10^3/uL (0.1-1.4); ABSOLUTE NEUT (AUTO) 6.4 10^3/uL (1.7-8.2); BASOPHILS % (AUTO) 0.4 % (0-2); EOSINOPHILS % (AUTO) 0.8 % (0-6); HEMATOCRIT 43.1 % (36.0-47.0); HEMOGLOBIN 14.8 g/dL (12.0-15.5); MEAN CORPUSCULAR HEMOGLOBIN 31.3 pg (27.0-33.4); MEAN CORPUSCULAR HGB CONC 34.3 g/dL (32.0-36.0); MEAN CORPUSCULAR VOLUME 91 fl (80-97); MONOCYTES % (AUTO) 4.9 % (3-13); PLATELET COUNT 189 10^3/uL (150-450); RED BLOOD COUNT 4.73 10^6/uL (3.72-5.28); RED CELL DISTRIBUTION WIDTH 13.4 % (11.5-14.0); SEGMENTED NEUTROPHILS % (AUTO) 59.9 % (42-78); TOTAL CELLS COUNTED % (AUTO) 100 %; WHITE BLOOD COUNT 10.6 10^3/uL (4.0-10.5)
[2019-01-28 17:21] LABS: ALANINE AMINOTRANSFERASE 27 U/L (9-52); ALBUMIN 4.5 g/dL (3.5-5.0); ALKALINE PHOSPHATASE 58 U/L (38-126); ANION GAP 8 (5-19); ASPARTATE AMINO TRANSFERASE 20 U/L (14-36); BILIRUBIN,DIRECT 0.2 mg/dL (0.0-0.4); BILIRUBIN,TOTAL 0.5 mg/dL (0.2-1.3); BLOOD UREA NITROGEN 8 mg/dL (7-20); CALCIUM 9.9 mg/dL (8.4-10.2); CARBON DIOXIDE 26 mmol/L (22-30); CHLORIDE 105 mmol/L (98-107); GLUCOSE 97 mg/dL (75-110); POTASSIUM 4.4 mmol/L (3.6-5.0); SODIUM 139.2 mmol/L (137-145); TOTAL PROTEIN 7.1 g/dL (6.3-8.2)
[2019-01-28 17:38] LABS: FREE T4 (FREE THYROXINE) 1.39 ng/dL (0.78-2.19)
[2019-01-28 17:52] LABS: THYROID STIMULATING HORMONE 0.02 uIU/mL (0.47-4.68)
--- NOTE | 2019-01-28 22:01 | EKG REPORT ---
SEVERITY:- BORDERLINE ECG - SINUS RHYTHM BORDERLINE T ABNORMALITIES, DIFFUSE LEADS NONSPECIFIC ST-T CHANGES : Confirmed by: Brooke Valadez 28-Jan-2019 22:01:10
== END 2019-01-28 13:25 | disposition left against medical advice (07) ==
LOC: ER 11:19
DX: Z71.1 Person with feared health complaint in whom no diagnosis is made (principal); R00.2 Palpitations; R07.9 Chest pain, unspecified; R06.82 Tachypnea, not elsewhere classified; R42 Dizziness and giddiness; R61 Generalized hyperhidrosis; R11.0 Nausea; J45.909 Unspecified asthma, uncomplicated
CPT/HCPCS: 36415; 80053; 84439; 84443; 84484; 85025; 93005; 93010; 99281

== ENCOUNTER → 2020-02-21 | Outpatient (CLI) | payer OTHER, MEDICAID ==
[2020-02-21 12:17] LABS: A TYPE INFLUENZA AG NEGATIVE (NEGATIVE); B INFLUENZA AG NEGATIVE (NEGATIVE)
== END ==
LOC: RDC 11:01
PROVIDERS: ATTEND Registered Nurse
DX: Z20.828 Contact with and (suspected) exposure to other viral communicable diseases (principal)
CPT/HCPCS: 87070; 87635; 87804; 87880

== ENCOUNTER 2020-10-17 08:05 | Emergency (ER) | payer OTHER, MEDICAID ==
[2020-10-17] MEDS ORDERED: NORMAL SALINE 1000 ML 1,000 ML IV ONE (08:41)
[2020-10-17] MEDS ORDERED: ONDANSETRON HCL INJ/PF 4 MG/2 ML SDV IV ONE (08:41)
[2020-10-17] MEDS ORDERED: MORPHINE SULFATE 10 MG/ML INJ IV ONE (08:41)
--- NOTE | 2020-10-17 08:51 | ER Document Report ---
ED GI/ - General Stated Complaint: LEFT ABDOMINAL PAIN Time Seen by Provider: 10/17/20 08:31 Primary Care Provider: REYMUNDO DUEÑAS FNP [Primary Care Provider] - Follow up as needed Mode of Arrival: Ambulatory Information source: Patient TRAVEL OUTSIDE OF THE [place] IN LAST 30 DAYS: No - HPI Notes: Patient is a 45 y/o female with a hx of an infected kidney stone who presents with LLQ abdominal pain that began at 4:30AM this morning. Patient states the pain radiates to her left groin and left flank. She describes the pain as sharp that is exacerbated by movement. She reports nausea, and dysuria. She is unable to tell if she has hematuria and she is currently menstruating. She denies vomiting, fever, diarrhea and constipation. She has tried apple cider vinegar baths which have helped with UTIs in the past but this has provided no relief. Ferdinand thomas has a hx of thyroid cancer with thyroidectomy, pituitary tumor, migraines and asthma. She is an everyday smoker and smokes about 0.5 ppd. She denies alcohol use. - Related Data Allergies/Adverse Reactions: ciprofloxacin [From Cipro] Allergy (Verified 01/27/19 13:09) lorazepam Allergy (Verified 01/27/19 13:09) oxycodone [From Percocet] Allergy (Verified 01/27/19 13:09) Past Medical History - General Information source: Patient - Social History Smoking Status: Current Every Day Smoker Cigarette use (# per day): Yes - 0.5 ppd Frequency of alcohol use: None Family History: Reviewed & Not Pertinent - Past Medical History Cardiac Medical History: Reports: Hx Heart Attack - 2001 Pulmonary Medical History: Reports: Hx Asthma Endocrine Medical History: Reports: Hx Hypothyroidism Renal/ Medical History: Denies: Hx Peritoneal Dialysis Malignancy Medical History: Reports: Other - Hx of thyroid cancer Musculoskeletal Medical History: Reports Hx Arthritis, Reports Hx Musculoskeletal Deformity, Reports Hx Musculoskeletal Trauma Skin Medical History: Reports Hx MRSA Traumatic Medical History: Reports: Hx Fractures - Hand wrist leg to her left scapula and fingers Infectious Medical History: Reports: Hx MRSA - Face Past Surgical History: Reports: Hx Cardiac Catheterization - no stent, Hx Thyroid Surgery - Thyroidectomy with injury to parathyroid, Hx Tubal Ligation, Other - Lymph nodes from left axilla, breast ducts removed, neck cyst. Denies: Hx Coronary Stent - Immunizations Immunizations up to date: Yes Review of Systems - Review of Systems Constitutional: No symptoms reported EENT: No symptoms reported Cardiovascular: No symptoms reported Respiratory: No symptoms reported Gastrointestinal: See HPI Genitourinary: See HPI Female Genitourinary: No symptoms reported Musculoskeletal: No symptoms reported Skin: No symptoms reported Hematologic/Lymphatic: No symptoms reported Neurological/Psychological: No symptoms reported Physical Exam - Vital signs Vitals: Temp Pulse Resp BP Pulse Ox 98.3 F 113 H 18 133/78 H 100 10/17/20 08:11 10/17/20 08:11 10/17/20 08:11 10/17/20 08:11 10/17/20 08:11 - Notes Notes: PHYSICAL EXAMINATION: VITALS: Vitals reviewed. GENERAL: Patient sitting straight up in bed and appears very uncomfortable. She became tearful after abdominal exam due to the pain. HEAD: Atraumatic, normocephalic. EYES: Pupils equal, round, and reactive to light, extraocular movements intact, sclera anicteric, conjunctiva are normal. ENT: Nares patent. Moist mucous membranes. Oropharynx clear without exudates. NECK: Normal range of motion, supple without lymphadenopathy. LUNGS: Breath sounds clear to auscultation bilaterally and equal. No wheezes, rales, or rhonchi. HEART: Tachycardic with regular rhythm without murmurs. ABDOMEN: Soft abdomen with normoactive bowel sounds. LLQ tenderness with significant left CVA tenderness. No guarding, no rebound. No masses appreciated. EXTREMITIES: Normal range of motion, no pitting or edema. No cyanosis. NEUROLOGICAL: No focal neurological deficits. Moves all extremities spontaneously and on command. PSYCH: Normal mood, normal affect. SKIN: Warm, Dry, normal turgor, no rashes or lesions noted. Course - Re-evaluation Re-evalutation: Patient is a 45 y/o female with a hx of an infected kidney stone who presents with LLQ abdominal pain that radiates to her left groin and left flank that began earlier this morning. Patient is tachycardic with a HR of 113 but vital signs are otherwise normal. On exam, LLQ tenderness and significant L CVA tenderness. 1L of IVF, 4mg IV morphine, and 4mg IV zofran ordered. CBC and CMP are unremarkable and within normal limits. UA shows moderate blood but this is consistent with current menstruation. CT abd/pelvis shows 2 x 4 x 2 mm ureterolith at the left ureterovesicular junction without significant ureterectasis or hydronephrosis. Background of bilateral nephrolithiasis. Presents with findings consistent with acute nephrolithiasis. Urinalysis does show hematuria. Laboratory otherwise unremarkable. Pain was able to be controlled here in the emergency department. Patient is tolerating oral intake. Clinical history is not consistent with an acute abdominal aneurysm or dissection, SD, or pulmonary embolus. Urinalysis does not show findings consistent with an infected stone. Vitals have remained within normal limits. Patient will be discharged with recommendations to follow-up with urology, pain medications, and return precautions. They are in agreement with this plan and verbalized indications return to emergency department. - Vital Signs Vital signs: Temp Pulse Resp BP Pulse Ox 98.3 F 113 H 16 108/71 99 10/17/20 08:11 10/17/20 08:11 10/17/20 10:01 10/17/20 10:01 10/17/20 10:01 - Laboratory Result Diagrams: 10/17/20 08:45 10/17/20 08:45 Laboratory results interpreted by me: 10/17/20 08:45 Urine Blood LARGE H - Diagnostic Test Radiology reviewed: Reports reviewed Radiology results interpreted by me: Abdomen/Pelvis CT 10/17/20 08:40 IMPRESSION: 2 x 4 x 2 mm ureterolith at the left ureterovesicular junction without significant ureterectasis or hydronephrosis. Background of bilateral nephrolithiasis. Discharge - Discharge Clinical Impression: Kidney stone on left side, Left flank pain Abdominal pain Qualifiers: Abdominal location: left lower quadrant Qualified Code(s): R10.32 - Left lower quadrant pain Condition: Stable Disposition: HOME, SELF-CARE Instructions: Oral Narcotic Medication ([facility]) Additional Instructions: Follow up with [facility] Urology: [address] [place] [id number] Kidney Stone You are passing or have passed a kidney stone. These stones are usually due to increased calcium or uric acid concentrations in your urine. Stones within the kidney itself are not painful. The pain occurs as the stone leaves the kidney to pass down the long tube, called the ureter, leading to the bladder. If the stone is small, it will usually pass by itself. Most patients can pass the stone at home. You will usually receive medications for pain, nausea or vomiting, and sometimes a medication to assist in passing the kidney stone. However, if the pain is very severe or if vomiting prevents you from taking oral pain medications, you may need to return for further treatment. Drink three or four quarts of fluids per day. You will be given pain medication (if needed) and urine strainers. Strain all your urine to see if the stone passes. If your doctor has asked you to bring the stone in for analysis, return with the stone once it has passed. Return if pain or vomiting become severe, if you develop a high fever, if you are unable to pass your urine, or if other unusual symptoms occur. Prescriptions: Ondansetron [Zofran Odt 4 mg Tablet] 1 - 2 tab PO Q4HP PRN #15 tab.rapdis PRN Reason: Hydrocodone/Acetaminophen [Harold 5-325 mg Tablet] 1 - 2 tab PO Q6 PRN #15 tablet PRN Reason: Referrals: REYMUNDO DUEÑAS FNP [Primary Care Provider] - Follow up as needed
[2020-10-17 09:21] LABS: APPEARANCE,URINE CLEAR; BILIRUBIN,URINE NEGATIVE (NEGATIVE); COLOR,URINE STRAW; GLUCOSE, URINE NEGATIVE (NEGATIVE); KETONES,URINE NEGATIVE (NEGATIVE); LEUKOCYTE ESTERASE,URINE NEGATIVE (NEGATIVE); NITRITE,URINE NEGATIVE (NEGATIVE); PROTEIN,URINE NEGATIVE (NEGATIVE); URINE SPECIFIC GRAVITY 1.002; UROBILINOGEN,URINE NEGATIVE mg/dL (<2.0)
[2020-10-17 09:24] LABS: ABSOLUTE LYMPHOCYTES (AUTO) 2.3 10^3/uL (0.5-4.7); ABSOLUTE MONOCYTES (AUTO) 0.5 10^3/uL (0.1-1.4); ABSOLUTE NEUT (AUTO) 3.8 10^3/uL (1.7-8.2); BASOPHILS % (AUTO) 0.4 % (0-2); EOSINOPHILS % (AUTO) 0.7 % (0-6); HEMATOCRIT 43.2 % (36.0-47.0); LYMPHOCYTES % (AUTO) 34.5 % (13-45); MEAN CORPUSCULAR HGB CONC 34.7 g/dL (32.0-36.0); MEAN CORPUSCULAR VOLUME 92 fl (80-97); MONOCYTES % (AUTO) 7.6 % (3-13); PLATELET COUNT 178 10^3/uL (150-450); RED BLOOD COUNT 4.68 10^6/uL (3.72-5.28); RED CELL DISTRIBUTION WIDTH 13.1 % (11.5-14.0); SEGMENTED NEUTROPHILS % (AUTO) 56.8 % (42-78); TOTAL CELLS COUNTED % (AUTO) 100 %; WHITE BLOOD COUNT 6.7 10^3/uL (4.0-10.5)
[2020-10-17 09:43] LABS: ALBUMIN 4.8 g/dL (3.5-5.0); ALKALINE PHOSPHATASE 46 U/L (38-126); ANION GAP 7 (5-19); ASPARTATE AMINO TRANSFERASE 21 U/L (14-36); BILIRUBIN,DIRECT 0.1 mg/dL (0.0-0.4); BILIRUBIN,TOTAL 0.7 mg/dL (0.2-1.3); BLOOD UREA NITROGEN 9 mg/dL (7-20); CALCIUM 9.7 mg/dL (8.4-10.2); CARBON DIOXIDE 26 mmol/L (22-30); CHLORIDE 106 mmol/L (98-107); GLUCOSE 101 mg/dL (75-110); TOTAL PROTEIN 7.5 g/dL (6.3-8.2)
--- NOTE | 2020-10-17 10:15 | RADIOLOGY REPORT (SQ) ---
EXAM DESCRIPTION: CT ABD/PELVIS NO ORAL OR IV IMAGES COMPLETED DATE/TIME: 10/17/2020 9:59 am REASON FOR STUDY: abdominal pain COMPARISON: None. TECHNIQUE: CT scan of the abdomen and pelvis performed without intravenous or oral contrast. Images reviewed with lung, soft tissue, and bone windows. Reconstructed coronal and sagittal MPR images revi ewed. All images stored on PACS. All CT scanners at this facility use dose modulation, iterative reconstruction, and/or weight based d osing when appropriate to reduce radiation dose to as low as reasonably achievable (ALARA). [facility]: Dose Right [facility]: CareDose [facility]: Dose Right [facility]: Teradose 4D [facility]: Smart [place] RADIATION DOSE: CT Rad equipment meets quality standard of care and radiation dose reduction techniq ues were employed. CTDIvol: 5.6 mGy. DLP: 276 mGy-cm.mGy. LIMITATIONS: None. FINDINGS: LOWER CHEST: No significant findings. No nodules or infiltrates. NON-CONTRASTED LIVER, SPLEEN, ADRENALS: Evaluation limited by lack of IV contrast. No identified sign ificant masses. PANCREAS: No masses. No peripancreatic inflammatory changes. GALLBLADDER: No identified stones by CT criteria. No inflammatory changes to suggest cholecystitis. RIGHT KIDNEY AND URETER: No suspicious masses. Assessment limited by lack of IV contrast. Few punct ate nonobstructing nephroliths are demonstrated. No hydronephrosis or hydroureter. LEFT KIDNEY AND URETER: No suspicious masses. Assessment limited by lack of IV contrast. Few puncta te nonobstructing nephroliths are demonstrated. A 2 x 4 x 2 mm ureterolith is seen at the left urete rovesicular junction. No hydronephrosis or hydroureter. AORTA AND RETROPERITONEUM: No aneurysm. No retroperitoneal masses or adenopathy. BOWEL AND PERITONEAL CAVITY: No obvious masses or inflammatory changes. No free fluid. APPENDIX: Normal. PELVIS, BLADDER, AND ABDOMINAL WALL:No abnormal masses. No free fluid. Bladder normal. BONES: No significant findings. OTHER: No other significant finding. IMPRESSION: 2 x 4 x 2 mm ureterolith at the left ureterovesicular junction without significant urete rectasis or hydronephrosis. Background of bilateral nephrolithiasis. COMMENT: Quality ID # [id number]: Final reports with documentation of one or more dose reduction techniques (e.g., Automated exposure control, adjustment of the mA and/or kV according to patient size, use of iterative reconstruction technique) TECHNICAL DOCUMENTATION: JOB ID: [id number] 2010 [email or web address]- All Rights Reserved Reading location - IP/workstation name: [email or web address]
[2020-10-17 11:03] VITALS: BP 108/71
== END 2020-10-17 11:04 | disposition home or self-care (01) ==
LOC: ER 08:05
DX: N20.2 Calculus of kidney with calculus of ureter (principal); R31.9 Hematuria, unspecified; R10.32 Left lower quadrant pain; R10.814 Left lower quadrant abdominal tenderness; R11.0 Nausea; R30.0 Dysuria; R00.0 Tachycardia, unspecified; J45.909 Unspecified asthma, uncomplicated; Z87.440 Personal history of urinary (tract) infections; F17.210 Nicotine dependence, cigarettes, uncomplicated; Z88.1 Allergy status to other antibiotic agents; Z88.8 Allergy status to other drugs, medicaments and biological substances; Z88.6 Allergy status to analgesic agent; Z88.5 Allergy status to narcotic agent
CPT/HCPCS: 99285; 96361; 96374; 96375; 36415; 84703; 85025; 80053; 81001; 74176; J2270; J2405; J7030